=== PATIENT | female | born 1970 | race Caucasian/White ===

== ENCOUNTER → 2023-04-07 13:15 | Outpatient (CLI) | payer BC, SELFPAY ==
--- NOTE | 2023-04-07 13:18 | DI.RAD.S_ITS ---
PROCEDURE: XR HIP W PEL IF DONE LT 2V INDICATIONS: worsening L hip pain, no injury TECHNIQUE: AP pelvis with lateral view(s) of the left hip(s). COMPARISON: None. FINDINGS: Bones: No fractures or dislocations. Pelvic ring appears intact. No suspicious bony lesions. Soft tissues: The visualized bowel gas pattern is normal. No suspicious soft tissue calcifications. IMPRESSION: No visualized acute fracture or dislocation. However, if clinical concern and/or pain persist, short interval imaging followup in 7-10 days is recommended, as occult injury cannot be definitively excluded. Dictated by: Mala Varela M.D. on 04/07/2023 at 13:51 Approved by: Mala Varela M.D. on 04/07/2023 at 13:53
--- NOTE | 2023-04-07 13:18 | DI.RAD.S_ITS ---
PROCEDURE: XR FOOT LT MIN 3V INDICATIONS: left foot pain 2/3 MTP distal lat 5th metatarsal TECHNIQUE: 3 views of the foot were acquired. COMPARISON: None. FINDINGS: Bones: No fractures or dislocations. No suspicious bony lesions. Soft tissues: No tibiotalar joint effusion. Achilles tendon appears normal. IMPRESSION: No visualized acute fracture or dislocation. However, if clinical concern and/or pain persist, short interval imaging followup in 7-10 days is recommended, as occult injury cannot be definitively excluded. Dictated by: Mala Varela M.D. on 04/07/2023 at 13:50 Approved by: Mala Varela M.D. on 04/07/2023 at 13:51
== END ==
PROVIDERS: Referring Provider Student in an Organized Health Care Education/Training Program; Visit Provider Student in an Organized Health Care Education/Training Program
DX: M79.672 Pain in left foot (principal); M25.552 Pain in left hip
CPT/HCPCS: 73502; 73620